=== PATIENT | female | born 1970 | race Hispanic/Latino ===

== ENCOUNTER 2021-07-01 18:51 | Emergency (ER) | payer OTHER, SELFPAY ==
[2021-07-01] MEDS ORDERED: Ketorolac Tromethamine 60 MG/2 ML VIAL ONE (21:08)
== END 2021-07-01 21:25 | disposition home or self-care (01) ==
LOC: NAV ERS 18:51
DX: S40.012A Contusion of left shoulder, initial encounter (principal); S70.02XA Contusion of left hip, initial encounter; W19.XXXA Unspecified fall, initial encounter
CPT/HCPCS: 72100; 96372; J1885

== ENCOUNTER 2024-03-20 15:12 | Emergency (ER) | payer BC ==
[2024-03-20] MEDS ORDERED: Cyclobenzaprine 10 MG TAB ONE (15:56)
[2024-03-20] MEDS ORDERED: Ibuprofen 200 MG TAB ONE (15:56)
== END 2024-03-20 17:11 | disposition home or self-care (01) ==
LOC: NAV ERS 15:12
DX: F43.0 Acute stress reaction (principal); F41.9 Anxiety disorder, unspecified
CPT/HCPCS: 93005